=== PATIENT | male | born 1980 | race African-American/Black ===

== ENCOUNTER 2021-12-14 11:28 | Emergency (ER) | payer MEDICAID ==
[2021-12-14 11:38] VITALS: BP 156/94
--- NOTE | 2021-12-14 12:20 | ED Physician Documentation ---
History of Present Illness - Stated complaint Stated Complaint: RT EAR CLOG - Chief complaint Chief Complaint: Heent - History obtained from History obtained from: Patient - Additonal information Additional information: He developed right ear pressure and popping with decreased hearing about 3 days ago. No URI symptoms or fevers. He tried using an OTC earwax medication without relief. Review of Systems Constitutional: denies: Fever, Chills Nose: denies: Rhinorrhea / runny nose, Congestion Throat: denies: Sore throat PD PAST MEDICAL HISTORY - Present Medications Home Medications: Ambulatory Orders Medication Instructions Recorded Confirmed Guaifenesin/Pseudoephedrne HCl 1 each PO BID PRN #20 ea 12/14/21 [Mucinex D ER 600-60 mg Tablet] - Allergies Allergies/Adverse Reactions: Allergies Allergy/AdvReac Type Severity Reaction Status Date / Time No Known Drug Allergies Allergy Verified 12/14/21 11:38 PD ED PE NORMAL - Vitals Vital signs reviewed: Yes - General General: Alert and oriented X 3, No acute distress - HEENT HEENT: Other (Bulging serous otitis without otitis media on the right, canals are clear. Left TM is normal) - Neuro Neuro: Alert and oriented X 3, Normal speech - Psych Psych: Normal mood, Normal affect Results - Vitals Vitals: Vital Signs - 24 hr 12/14/21 11:34 Temperature 36.3 C L Heart Rate 73 Respiratory 14 Rate Blood Pressure 156/94 H O2 Saturation 98 Oxygen O2 Source Room air Departure - Departure Disposition: Home, Self Care Clinical Impression: Right serous otitis media Qualifiers: Chronicity: acute Recurrence: non-recurrent Qualified Code(s): H65.01 - Acute serous otitis media, right ear Condition: Good Record reviewed to determine appropriate education?: Yes Instructions: ED Otitis Media Serous Adult Prescriptions: Guaifenesin/Pseudoephedrne HCl [Mucinex D ER 600-60 mg Tablet] 1 each PO BID PRN #20 ea PRN Reason: congestion Comments: I sent your prescription electronically to [facility] in [place]. As discussed, you have fluid, (snot), behind the right eardrum. There is no evidence of infection. This should respond to pushing oral fluids and prescription decongestant. Return for new or worsening symptoms. Follow-up with your doctor in about a week if not better. Your blood pressure was elevated today on check into the emergency department. This does not mean that you have hypertension, it is a common phenomenon to come to the emergency department and have elevated blood pressure. I recommend that you see your primary care physician within the week to have it rechecked when you are feeling better.
== END 2021-12-14 12:23 | disposition home or self-care (01) ==
LOC: ED 11:28
DX: H65.01 Acute serous otitis media, right ear (principal); R03.0 Elevated blood-pressure reading, without diagnosis of hypertension
CPT/HCPCS: 99282; 99283